=== PATIENT | female | born 2000 | race Caucasian/White ===

== ENCOUNTER 2023-01-22 08:55 | Emergency (ER) | payer MEDICAID ==
[~2023-01-22] VITALS: Ht 165.1 cm; Wt 70.0 kg
[2023-01-22 09:04] VITALS: O2SAT 100
[2023-01-22] MEDS ORDERED: AZITHROMYCIN 500 MG TABLET PO ONE (09:15)
[2023-01-22] MEDS ORDERED: LIDOCAINE HCL 1% 20ML VIAL (Pyxis) INJ INFIL ONE (09:15)
[2023-01-22] MEDS ORDERED: IBUPROFEN 400MG TABLET PO ONE (09:15)
[2023-01-22] MEDS ORDERED: CEFTRIAXONE SODIUM 500 MG/VIAL IM ONE (09:15)
[2023-01-22] MEDS ORDERED: ACETAMINOPHEN 325MG TABLET PO ONE (09:15)
[2023-01-22 10:00] LABS: CLARITY URINE TURBID (CLEAR); COLOR URINE RED (YELLOW); GLUCOSE URINE NEGATIVE (NEGATIVE); KETONES URINE NEGATIVE (NEGATIVE); LEUKOCYTE ESTERASE URINE 2+ (NEGATIVE); NITRITE URINE NEGATIVE (NEGATIVE); OCCULT BLOOD URINE 3+ (NEGATIVE); PH URINE 5.5 (4.5-8.0); PROTEIN URINE 2+ (NEGATIVE); SPECIFIC GRAVITY URINE 1.033 (1.005-1.030)
[2023-01-22] MEDS ORDERED: NITR-87 MT (10:13)
[2023-01-22] MEDS ORDERED: IBUP-2028 MT (10:14)
[2023-01-22 10:19] LABS: RBC URINE TNTC /hpf (0-2); SQUAMOUS EPITHELIAL CELL URINE 1+ /lpf (RARE/1+)
[2023-01-22 10:21] LABS: BACTERIA URINE 1+; YEAST URINE NONE SEEN
[2023-01-22 10:22] LABS: WBC URINE 25-50 /hpf (0-2)
[2023-01-22 10:27] VITALS: BP 133/78; PULSE 69; RESP 19; TEMP 98
[2023-01-24 04:07] LABS: CHLAMYDIA TRACHOMATIS NAA Positive (Negative); NEISSERIA GONORRHOEAE NAA Negative (Negative)
== END 2023-01-22 10:28 | disposition home or self-care (01) ==
LOC: ER 08:55
DX: N39.0 Urinary tract infection, site not specified (principal)
CPT/HCPCS: 87491; 87591; 81003; 81025; 87086; 73140; 96372; 99284; J0696; J3490; Z7610 ×2